=== PATIENT | female | born 1980 | race Caucasian/White ===

== ENCOUNTER 2018-06-13 19:25 | Emergency (ER) | payer OTHER ==
[~2018-06-13] VITALS: Ht 175.3 cm; Wt 77.1 kg
[2018-06-13] MEDS ORDERED: EFFEXOR XR37.5 MG PO (19:43)
[2018-06-13] MEDS ORDERED: KEFLEX500 M1 PO (21:03)
[2018-06-13] MEDS ORDERED: IBUPROFEN 600600 M1 PO (21:03)
[2018-06-13] MEDS ORDERED: NORCO 5-325 TA1 EACH PO (21:03)
[2018-06-13 21:21] VITALS: BP 121/71
== END 2018-06-13 21:10 | disposition home or self-care (01) ==
LOC: M.ERS 19:25
DX: S61.012A Laceration without foreign body of left thumb without damage to nail, initial encounter (principal); F32.9 Major depressive disorder, single episode, unspecified; F17.210 Nicotine dependence, cigarettes, uncomplicated; Z86.711 Personal history of pulmonary embolism; W25.XXXA Contact with sharp glass, initial encounter; Y93.89 Activity, other specified; Y92.89 Other specified places as the place of occurrence of the external cause; Y99.8 Other external cause status